=== PATIENT | female | born 1970 | race Caucasian/White ===

== ENCOUNTER → 2024-08-08 11:37 | Outpatient (REF) | payer SELFPAY | LOC: WDC 11:37 | PROVIDERS: ATTENDING PHYSICIAN Family Medicine | DX: Z12.31 Encounter for screening mammogram for malignant neoplasm of breast (principal) | CPT/HCPCS: 77063; 77067 ==

== ENCOUNTER → 2024-08-15 10:06 | Outpatient (REF) | payer SELFPAY | LOC: WDC 10:06 | PROVIDERS: ATTENDING PHYSICIAN Family Medicine | DX: R92.8 Other abnormal and inconclusive findings on diagnostic imaging of breast (principal) | CPT/HCPCS: 76642 ==

== ENCOUNTER → 2024-08-29 11:12 | Outpatient (REF) | payer SELFPAY ==
--- NOTE | 2024-08-29 14:39 | OID.BR.INTR ---
[facility] Breast Navigator - Initial
- -
Date of Contact: 08/29/24
Met with patient. Patient given written information on navigator services available at [facility]. Will follow up as needed per protocol.
== END ==
LOC: WDC 11:12
PROVIDERS: ATTENDING PHYSICIAN Family Medicine
DX: N63.13 Unspecified lump in the right breast, lower outer quadrant (principal)
CPT/HCPCS: 88305; 19083; 88341; 88342; 88360; A4648

== ENCOUNTER → 2024-09-18 16:21 | Outpatient (REF) | payer MEDICAID, SELFPAY | LOC: MRI 3T 16:21 | PROVIDERS: ATTENDING PHYSICIAN Surgery; FAMILY PHYSICIAN Family Medicine | DX: C50.411 Malignant neoplasm of upper-outer quadrant of right female breast (principal); Z17.0 Estrogen receptor positive status [ER+] | CPT/HCPCS: 77049; A9585 ==

== ENCOUNTER → 2024-11-14 08:28 | Outpatient (REF) | payer OTHER, SELFPAY | LOC: WDC 08:28 | PROVIDERS: ATTENDING PHYSICIAN Surgery | DX: C50.411 Malignant neoplasm of upper-outer quadrant of right female breast (principal) | CPT/HCPCS: 38792; 76942; A9541 ==

== ENCOUNTER 2024-11-15 06:09 | Day surgery (SDC) | payer OTHER, MEDICAID, SELFPAY ==
[2024-11-15] VITALS (14 sets, daily range): BP systolic 0–132; BP diastolic 68–88; BMI 25.2
[2024-11-15] MEDS: NORMOSOL-R/PLASMALYTE-A 1000 IV (06:34)
[2024-11-15] MEDS: DILAUDID 0.5 MG IV (16:13)
--- NOTE | 2024-11-15 16:25 | PTCARENOTE ---
Pt received from the PACU via bed. Pt is AAOx3, VSS, Pt is afebrile. Pt with Surgical bra in place. Dressings to b/l breast intact w/o drainage at this time. Pt with 2 Narinder drains on left breast area, and 2 Narinder drains right breast area. All drains
intact, right drain 'A' with serosanquinous fluid noted. Pt instructed on plan of care. Pt verbalized understanding of instructions, call russ is within reach.
--- NOTE | 2024-11-15 16:29 | W.IMMPOSTOP ---
Surgical Immed Post Op Note
-
Primary Surgeon: DEANN Anguiano MD
Assisting Surgeon:
Pre-op Diagnosis: Breast cancer
Post-op Diagnosis: Same
Procedure Performed: Bilateral immediate reconstruction with tissue expanders after bilateral mastectomy, insertion of ADM, spy angiography
Anesthesia Type: General
Specimen / Cultures: Per Dr. Gomez
Estimated Blood Loss: 30 cc
Complications: None
Operative Findings: As expected, expanders to 300 cc
--- NOTE | 2024-11-15 16:31 | OR.RPT ---
Operative Report
Operative Report
Date of surgery: 11/15/2024
Surgeon: DEANN Anguiano MD
Preoperative diagnosis: Breast cancer
Postoperative diagnosis: Same
Procedure:
1. Bilateral immediate breast reconstruction with prepectoral tissue expanders
2. Total anterior coverage technique for ADM wrap
3. Spy angiography
Complications: None
Anesthesia: General
EBL: 30
Furniture Sales Associate size: 14 cm, filled to 300 cc
Indications for procedure: Patient was referred to me by Dr. Gomez with a recent diagnosis of breast cancer. She was planned to undergo bilateral mastectomy. We discussed her options for breast reconstruction at length including implant based
and autologous options. The patient opted for immediate reconstruction with tissue expanders. She understands that the final reconstruction will be staged. We also discussed the use of ADM and spy angiography. Risks include reconstructive
failure, capsular contracture, infection, delayed wound healing, mastectomy skin flap necrosis, hematoma, seroma and need for repeat procedure. Patient understood these risks and desired to proceed. Consents were signed accordingly.
Procedure in detail: Patient was identified the preoperative area and the surgical site was confirmed to be the bilateral breast. All questions were answered and consents were confirmed. Patient was then sat upright and normal anatomical landmarks
were marked including midline and inframammary fold. Patient was then taken back to the operating room placed supine on the table. She was prepped and draped in the usual sterile fashion using ChloraPrep solution. A Bhakta catheter was placed. A
timeout for patient safety was performed was confirmed that bilateral SCDs were in place and preoperative antibiotics administered. The procedure began with Dr. Gomez first performing the mastectomy. Her op report will be dictated separately.
When I entered the procedure, the first sided mastectomy had been completed. As such I inspected the wound bed of the chest wall and ensured meticulous hemostasis. The base width was measured and appropriate tissue material handling warehouse supervisor was selected. Two 6 x
16 sheets of Cortiva ADM were soaked in dilute Betadine solution and passed through the skin graft mesher on carrier of 1-1.5. This construct was then draped around the tissue material handling warehouse supervisor in a total anterior coverage technique. The material handling warehouse supervisor ADM
construct was then sutured to the chest wall with a series of 2-0 silk sutures. Pectoralis and intercostal blocks were performed with Marcaine. 2 drains were then placed in the preaxial area line with a long subcutaneous tunnel and sutured in
place with 2-0 Prolene sutures. The wound was irrigated with double antibiotic solution and dilute Betadine. The mastectomy incisions were then closed with a series of 3-0 Vicryl's in the deep subcutaneous tissues followed by 3-0 and 4-0
Monocryl's in the deep dermis and superficial skin.
Attention was then placed on the contralateral side after completion of the mastectomy. The exact same procedure was performed. An material handling warehouse supervisor of the same size was opened and 2 sheets of ADM were soaked in Betadine, meshed, and draped around the
anterior surface of the material handling warehouse supervisor in a total anterior coverage technique. The construct was then sutured to the chest wall using 2-0 silks. Pectoralis and intercostal blocks were performed. Meticulous hemostasis was ensured and the wound was
irrigated with combination of double antibiotic solution consisting of Ancef and gentamicin as well as dilute Betadine. The wound was closed in layers with 3-0 Vicryl followed by 3-0 Monocryl and 4-0 Monocryl superficial skin.
Spy angiography was performed after closure to ensure adequate vascularity of the bilateral mastectomy flaps. This was confirmed. The wounds were dressed accordingly and a supportive bra was placed. The patient was extubated taken to the PACU for
further care. All counts were correct at the end the case was performed out complication.
[2024-11-15] MEDS: NEURONTIN 100 MG PO ×2 (17:43→21:39)
[2024-11-15] MEDS: TYLENOL 1000 MG PO ×2 (17:45→23:01)
--- NOTE | 2024-11-15 18:44 | OR.RPT ---
Addendum entered and electronically signed by Mary Gomez MD 11/29/24 14:21:
Pre-Op DX: Right breast carcinoma S/P neoadjuvant chemotherapy
Post-Op DX: Right breast carcinoma S/P neoadjuvant chemotherapy
Procedure: Bilateral mastectomies, right sentinel node mapping and biopsy
Anes: General
EBL: 50cc
Complications: None
Original Note:
Operative Report
Operative Report
The patient is a 48-year-old female diagnosed with right sided HER2 positive breast carcinoma who qualified for neoadjuvant chemotherapy treatment. She completed her therapy and presents for definitive surgery. On the day prior to her procedure
she presented to the breast center and underwent technetium radiotracer injection into her right breast parenchyma. On the day of surgery she verified site and procedures. She was taken to the operating room and in the supine position intravenous
general anesthesia was induced. A tran catheter was inserted using aseptic technique and antibiotic and DVT prophylaxis had been provided. Plastic surgery who is performing an implant based reconstruction marked the incisions which incorporated
resection of the nipples bilaterally. The dissection was begun on the left side where a skin incision was made with the blade and skin flaps were elevated using a lighted retractor and the PlasmaBlade. Any larger vessels were controlled with 3-0
silk tie and the breast was taken off the chest wall in a superior to inferior dimension. Time out of body was noted the specimen was oriented for the pathologist and sent for immediate processing. Hemostasis was verified and a moist pack was
placed in the resection cavity. Plastic surgery entered to begin the reconstructive portion of the procedure. I then transferred to the right side and in the same manner the incision was made and skin flaps were elevated on the right side. This
breast was taken off, oriented and sent for pathology. This allowed access into the axilla and prior to incising the skin on the right I injected methylene blue into the breast parenchyma and external massage was applied. Clavipectoral fascia was
incised using the cautery this allowed access into the axilla. Using the gamma probe and visualization 3 sentinel node packets were identified and removed. Feeding vessels were controlled with 3-0 silk tie. Frozen section analysis on the nodes was
negative and actually revealed the presence of 5 sentinel nodes. Plastic surgery then continued to complete the reconstructive portion of the procedure. All sponge needle and instrument counts were correct at this juncture,
[place] Node Bx Breast Cancer
[place] Node Bx Breast Cancer
Operation performed with curative intent: Yes
Tracer(s) to ID [place] Nodes in Non-Neoadjuvant setting: N/A
Tracer(s) to ID Sentinal Nodes in the Neoadjuvant Setting: Dye and Radioactive Tracer
All nodes at end of dye-filled Lymphatic Channel removed: Yes
All Significantly Radioactive Nodes were removed: Yes
All Palpably Suspicious Nodes were Removed: Yes
Bx Proven Pos Nodes Marked Prior to Chemo ID'd & Removed: Yes
[2024-11-15] MEDS: ANCEF 5 IV (20:15)
[2024-11-15] MEDS: COLACE 100 MG PO (20:15)
[2024-11-15] MEDS: VALIUM 5 MG PO (23:04)
[2024-11-15] MEDS: TUMS CHEWABLE TABLET 200 MG PO (23:31)
[2024-11-16] MEDS: ANCEF 5 IV ×2 (03:03→12:29)
[2024-11-16 03:07] VITALS: BP 133/84
[2024-11-16] MEDS: ULTRAM 100 MG PO ×2 (03:13→09:40)
[2024-11-16] MEDS: TYLENOL 1000 MG PO ×2 (05:55→12:29)
[2024-11-16 06:56] LABS: Hematocrit 34.8 % (37.0-47.0); Hemoglobin 11.9 g/dL (12.0-16.0)
[2024-11-16 07:15] VITALS: BP 125/83
[2024-11-16 07:19] LABS: Blood Urea Nitrogen 11 mg/dl (7-17); Calcium 9.4 mg/dl (8.4-10.2); Carbon Dioxide 27 mmol/L (22-30); Chloride 105 mmol/L (98-107); Estimated Creatinine Clearance 75 ml/min; Glucose 91 mg/dl (70-99); Potassium 4.3 mmol/L (3.5-5.1); Sodium 137 mmol/L (135-145); eGFR > 60.00
[2024-11-16] MEDS: COLACE 100 MG PO (09:30)
[2024-11-16] MEDS: ARMOUR THYROID 120 MG PO (09:30)
[2024-11-16] MEDS: NEURONTIN 100 MG PO ×2 (09:30→16:54)
[2024-11-16 11:08] VITALS: BP 121/85
--- NOTE | 2024-11-16 11:35 | VNURNOTE ---
Home Health Liaison met with patient and family member to discuss [facility] nurse/therapy, visits, schedule and homebound status. Patient is agreeable and understands that visits at home will be 2-3 x per week to assess and teach medical and drain
management. [facility] brochure provided with contact information. Patient is aware that [facility] will contact them for start of care in 1-2 days after discharge from .
[facility] referral completed in [facility].
--- NOTE | 2024-11-16 11:49 | CM ---
Met with pt and her son at bedside
Pt reports she lives with her and adult son in a 3 story home; no steps to enter, 30 steps to 2nd fl
Independent, employed FT, drives
DME - none
SNF/HH - no past hx
Has ride at discharge
PCP - Lanie Allan in [place]
Pharm - [facility]
CM consult for VN/drain care
Discussed with pt - agreeable to home care - has no preference
TT sent to [facility] Liaison for home care needs
Plan - anticipate home with [facility] when medically stable
--- NOTE | 2024-11-16 13:13 | W.DCSUMMARY ---
Discharge Summary
Discharge Data
Date of Admission: 11/15/24
Date of Discharge: 11/16/24
-
Pending Results: No
Discharge Plan
-
Patient Disposition: Home (Routine Discharge)
Discharge Diagnosis/Procedures: s/p bilateral mastectomies and immediate reconstruction
Condition: Good
Diet: No restrictions
Activity: No strenuous activity
Additional Activity: No heavy lifting >10lbs
Driving Restrictions: Not until seen by your Dr
Bathing Restrictions: OK to Shower
Other Services: VN
Wound Care: Remove dressings if wet, strip and record drain output twice daily
Referrals:
UNKNOWN - PT NOT,INTERVIEWE [Family Provider] -
Prescriptions:
New
tramadol 50 mg Tablet
50 - 100 mg PO Q6HPRN PRN (Reason: SEVERE PAIN) 7 Days Qty: 20 0RF
acetaminophen [Tylenol Extra Strength] 500 mg Tablet
1,000 mg PO Q6 Qty: 30 0RF
docusate sodium 100 mg Capsule
100 mg PO BID 14 Days Qty: 28 0RF
gabapentin 100 mg Capsule
100 mg PO TID 90 Days Qty: 270 0RF
diazepam 5 mg Tablet
5 mg PO TIDPRN PRN (Reason: Muscle Spasms) 14 Days Qty: 42 0RF
cefadroxil 500 mg capsule
500 mg PO BID Qty: 42 0RF
Continued
ascorbic acid (vitamin C) [Vitamin C] 1,000 mg Tablet
3,000 mg PO DAILY
thyroid (pork) [Lima Thyroid] 120 mg Tablet
120 mg PO DAILY
Liposomal Curcumin
2 tsp PO DAILY
omega 2-icl-wwu-fish oil [Fish Oil] 1,000 (120-180) mg Capsule
1 cap PO DAILY
Rx Instructions:
OMEGA PURE FISH OIL
vitamin D3-vitamin K2 125 mcg (5,000 unit)-100 mcg Capsule
1 cap PO Q48H
Cbd Gummy
1 gummy PO HS
Discharge Orders:
Discharge Patient (As Directed); Ordered 11/16/24
Ordered By: Pradeep Anguiano
Discharge Date and Time
Print Language: TAJIK
--- NOTE | 2024-11-16 13:13 | W.PN.PLAS ---
Progress Note
Objective Data
Vital Signs
Temp Pulse Resp BP Pulse Ox
98 F 89 20 121/85 95
11/16/24 11:08 11/16/24 11:08 11/16/24 11:08 11/16/24 11:08 11/16/24 11:08
Intake and Output
11/15/24 11/16/24 11/17/24
06:59 06:59 06:59
Intake Total 1650 / 1650
Output Total 875 / 875 155 / 155
Balance 775 / 775 -155 / -155
Intake:
Oral fluids 1200 / 1200
IV fluids (Total) 450 / 450
normosol 100 / 100
Output:
Drain Output (Total) 475 / 475 155 / 155
Left Breast 110 / 110
Left Breast B 0 / 0
Left C 55 / 55 20 / 20
Left D 85 / 85 30 / 30
Right Breast A 105 / 105 65 / 65
Right Breast B 120 / 120 40 / 40
Urine, Bhakta 400 / 400
Other:
Number of approximated SMALL 1
amounts of urine
Number of approximated MODERATE 3
amounts of urine
Lab Results
11/16/24 06:04
11/16/24 06:04
Assessment / Plan
Wound stable. Patient continues to improve. Doing well. Patient anxious to go.
Patient is stable. Will discharge to home once patient is able to ambulate, void, tolerate a PO diet and pain is adequately controlled.
Visiting Nurse care ordered / not ordered.
Wound care discussed with patient.
Follow up within days.
Follow up with family physician for any medical issues.
Patient given any appropriate scripts at office pre op visit.
[2024-11-16 15:45] VITALS: BP 125/86
== END 2024-11-16 18:10 | disposition home or self-care (01) ==
LOC: SDS 06:09
PROVIDERS: Surgery Plastic and Reconstructive Surgery; ATTENDING PHYSICIAN Surgery
DX: C50.911 Malignant neoplasm of unspecified site of right female breast (principal); C50.912 Malignant neoplasm of unspecified site of left female breast; Z17.0 Estrogen receptor positive status [ER+]; N60.92 Unspecified benign mammary dysplasia of left breast
CPT/HCPCS: 19357; 19301; 38525; 15777; 88307; 88309; 88332; 80048; 85014; 85018; 88331; 88341; 88342; C1789; L8000; Q4100

== ENCOUNTER 2024-12-23 12:05 | Emergency (ER) | payer OTHER, MEDICAID, SELFPAY ==
[2024-12-23 12:12] VITALS: BP 140/100
[2024-12-23 12:31] LABS: % Basophils 0.7 % (0-2); % Eosinophils 4.7 % (0-6); % Immature Granulocytes 0.3 % (0-0.5); % Lymphocytes 27.1 % (20.5-51.1); % Monocytes 6.3 % (1.7-9.3); % Neutrophils 60.9 % (42.2-75.2); Absolute Eosinophils 0.3 10^3/uL (0-0.7); Absolute Lymphocytes 1.6 10^3/uL (1.2-3.4); Absolute Monocytes 0.4 10^3/uL (0.1-0.6); Absolute Neutrophils 3.5 10^3/uL (1.4-6.5); Hematocrit 40.7 % (37.0-47.0); Hemoglobin 13.6 g/dL (12.0-16.0); Mean Corp Hgb Conc. 33.4 g/dL (33.0-37.0); Mean Corpuscular Hgb 30.1 pg (27.0-31.0); Mean Platelet Volume 9.1 fL (7.4-10.4); Nucleated Red Blood Cells % 0 %; Platelet Count 268 10^3/uL (130-400); Red Blood Cell Count 4.52 10^6/uL (4.20-5.40); Red Cell Dist. Width 13.1 % (11.5-14.5); White Blood Cell Count 5.8 10^3/uL (4.8-10.8)
[2024-12-23 12:48] LABS: D-Dimer 1.51 ug/mlFEU (0.00-0.50)
[2024-12-23 12:51] LABS: ALT (SGPT) 24 U/L (0-35); AST (SGOT) 24 U/L (14-36); Albumin 4.5 g/dl (3.5-5.0); Alkaline Phosphatase 67 U/L (38-126); Blood Urea Nitrogen 16 mg/dl (7-17); Calcium 10.1 mg/dl (8.4-10.2); Carbon Dioxide 25 mmol/L (22-30); Chloride 104 mmol/L (98-107); Glucose 118 mg/dl (70-99); Potassium 4.1 mmol/L (3.5-5.1); Sodium 139 mmol/L (135-145); Total Bilirubin 0.4 mg/dl (0.2-1.3); Total Protein 7.2 g/dl (6.3-8.2); eGFR > 60.00
[2024-12-23 13:01] LABS: Troponin I < 0.012 ng/ml
--- NOTE | 2024-12-23 14:11 | ED.GENMED ---
History of Present Illness
<Marva León PA-C - Last Filed: 12/23/24 22:12>
General
Chief Complaint: Chest Pain
Source: patient
Exam Limitations: none
Time Seen by Provider: 12/23/24 13:31
Nursing documentation reviewed up to this point in time: agreed with
History of Present Illness
History of Present Illness:
54-year-old female with a past medical history of breast cancer 5 weeks status post bilateral mastectomy presents emergency department today with concerns of left chest pain. She states that she was doing well in her recovery and has breast binders
in place to eventually get a reconstruction. Patient reports that her pain has been well-controlled and has been steadily improving until last night she suddenly got an onset of left-sided chest pain. She notes that it is worse when she takes a
deep breath. She denies any shortness of breath. She also notes intermittent fevers and chills. She notes that the pain is centered around her incision site and the pain worsens with left arm movement or when she moves around the breast. She
denies dizziness or lightheadedness. She denies syncopal episodes. She denies pain or redness in her lower extremities. She denies any cough or flulike symptoms.
Past History
<Marva León PA-C - Last Filed: 12/23/24 22:12>
Past History
ED Past Medical History: Other (G3, P2)
ED Past Surgical History: None
Social History
Tobacco: Non-smoker
Alcohol: Occasional
Personal:
Living: with family
Employment: Employed
Family History
Family History: Other (Reviewed and non-contributory)
Review of Systems
<Marva León PA-C - Last Filed: 12/23/24 22:12>
Review of Systems
All Other Systems: ROS reviewed and negative except as documented in HPI and ROS
Phy Exam
<Marva León PA-C - Last Filed: 12/23/24 22:12>
Physical Exam
Physical Exam:
General: Patient is well appearing and in no acute distress; non-toxic
Skin: Warm and dry, mild erythema noted to left breast incision site with tenderness, areas of necrotic tissue noted
Head: Normocephalic, atraumatic
Eyes: Sclera non-icteric. EOMs intact.
Cardiac: Tachycaria otherwise regular rhythm, no murmurs.
Breast: See skin exam above. No palpable masses, no palpable lymphadenopathy bilaterally
Pulm: Normal respiratory effort, no wheezes, rales, or rhonchi
Neuro: CN II-XII intact, no focal neurologic deficits.
Psychiatric: Appropriate mood and affect.
Scores
<Marva León PA-C - Last Filed: 12/23/24 22:12>
Heart Score for Chest Pain Patients
STEMI patient?: No
History: Slightly or Non-Suspicious
ECG: Normal
Age: >45 - <65 years
Risk Factors: 1 or 2 Risk Factors
Troponin: </= Normal Limit
Heart Score for Chest Pain Patients: 2
Heart Score Risk: 2.5% MACE over next 6 weeks
<Cornelius Mcmahon DO - Last Filed: 12/23/24 22:15>
Heart Score for Chest Pain Patients
Heart Score for Chest Pain Patients: 2
Heart Score Risk: 2.5% MACE over next 6 weeks
Course
<Marva León PA-C - Last Filed: 12/23/24 22:12>
Orders/Labs/Results
Orders:
Orders
12/23/24 12:08
EKG [Electrocardiogram (*1)] Urgent
Reason for Study: Chest Pain
EKG- Treatment ONCE
12/23/24 12:18
CXR2 [CR Chest - 2 Views ] Urgent
Comment: s/p five wks b/l mastectomy
Reason For Exam: sob with left sided ches pain
12/23/24 12:23
Complete Blood Count/With Diff Urgent
Comprehensive Metabolic Panel Urgent
D-Dimer Urgent
Troponin I Urgent
12/23/24 13:54
CT Chest PE Study Urgent
Comment:
Reason For Exam: left sided pleuritic chest pain
12/23/24 14:06
US Breast Left Ltd Urgent
Comment:
Reason For Exam: left breast pain (abscess rule out)
12/23/24 17:19
Morphine Sulfate 4 mg IV NOW STA
Abnormal Lab Results
12/23/24
12:23
D-Dimer 1.51 H ug/mlFEU
(0.00-0.50)
Glucose 118 H mg/dl
(70-99)
12/23/24 12:23
12/23/24 12:23
Vital Signs
Initial and Last Documented VS:
Initial Vital Signs
Temp Pulse Resp BP Pulse Ox
98.2 F 120 16 140/100 98
12/23/24 12:12 12/23/24 12:12 12/23/24 12:12 12/23/24 12:12 12/23/24 12:12
Last Documented Vital Signs
Temp Pulse Resp BP Pulse Ox
98.5 F 103 21 141/84 97
12/23/24 18:30 12/23/24 18:30 12/23/24 18:30 12/23/24 18:30 12/23/24 18:30
Allisonlt;Cornelius Mcmahon, DO - Last Filed: 12/23/24 22:15>
Orders/Labs/Results
Orders:
Orders
12/23/24 12:08
EKG [Electrocardiogram (*1)] Urgent
Reason for Study: Chest Pain
EKG- Treatment ONCE
12/23/24 12:18
CXR2 [CR Chest - 2 Views ] Urgent
Comment: s/p five wks b/l mastectomy
Reason For Exam: sob with left sided ches pain
12/23/24 12:23
Complete Blood Count/With Diff Urgent
Comprehensive Metabolic Panel Urgent
D-Dimer Urgent
Troponin I Urgent
12/23/24 13:54
CT Chest PE Study Urgent
Comment:
Reason For Exam: left sided pleuritic chest pain
12/23/24 14:06
US Breast Left Ltd Urgent
Comment:
Reason For Exam: left breast pain (abscess rule out)
12/23/24 17:19
Morphine Sulfate 4 mg IV NOW STA
Abnormal Lab Results
12/23/24
12:23
D-Dimer 1.51 H ug/mlFEU
(0.00-0.50)
Glucose 118 H mg/dl
(70-99)
12/23/24 12:23
12/23/24 12:23
Vital Signs
Initial and Last Documented VS:
Initial Vital Signs
Temp Pulse Resp BP Pulse Ox
98.2 F 120 16 140/100 98
12/23/24 12:12 12/23/24 12:12 12/23/24 12:12 12/23/24 12:12 12/23/24 12:12
Last Documented Vital Signs
Temp Pulse Resp BP Pulse Ox
98.5 F 103 21 141/84 97
12/23/24 18:30 12/23/24 18:30 12/23/24 18:30 12/23/24 18:30 12/23/24 18:30
Allisonlt;Marva eLón PA-C - Last Filed: 12/23/24 22:12>
MDM/Problems Addressed
Differential Diagnosis Includes:
cellulitis, abscess, ACS, pneumothorax, PE, breast binder pain
MDM/Problems Addressed:
54-year-old female presents emergency department today with left-sided chest pain since last night. She does have a history of breast cancer and she is 5-week status post bilateral mastectomy. She has had intermittent fevers and chills. On exam,
she has redness and swelling over the left breast. Patient was sent for ultrasound to rule out any abscess. Ultrasound negative for abscess. Patient was noted to be tachycardic had D-dimer performed which was elevated patient sent for CTA which
was negative for any PE. Suspect her pain is related to where the neon glass blower sutured to the chest wall. Per recommendations of Dr. Anguiano, patient was restarted on tramadol for her pain. Patient was given a dose of morphine here in the emergency
department. Patient stable for discharge. Patient has a follow-up appointment with her surgeon in the next few days
Chronic conditions affecting care:
breast cancer
<Marva León PA-C - Last Filed: 12/23/24 22:12>
*Pulse Oximetry
Patient hypoxic: no
*EKG
Interpreted by ED Provider?: Yes
EKG Intrepretation Date: 12/23/24
Interpretation: normal
Comparison EKG: no changes
Heart Rate: 92
Rate: normal
Rhythm: sinus
[place]: normal axis
Interval: normal interval
QRS Pattern: normal QRS
*Critical Care Note
Total Time (30-74mins, 75-104mins- exclusive of procedures): Not Applicable
Data Reviewed
Review of Other/Old Records Reveals: Records (Reviewed discharge summary from 11/16/2024, patient had bilateral vasectomy and had tissue expanders in place for planned reconstruction)
Source: patient and records
ED Attending Note
<Marva León PA-C - Last Filed: 12/23/24 22:12>
-
Portions of this chart may have been created with voice recognition software.� Occasional wrong word or��sound alike� substitutions may have occurred due to the inherent limitations of voice recognition software.
<Cornelius Mcmahon, DO - Last Filed: 12/23/24 22:15>
ED Attending Note
Patient seen and examined by attending physician: Yes
I performed a history and physical exam of patient and discussed management with resident, I reviewed resident's note and agree with documented findings and plan of care.: Yes
ED Attending Note:
I have reviewed and agree with history and treatment plan by Marva León PA-C. My exam revealed 54-year-old female in no acute distress, clear lungs. Breasts with postoperative ecchymosis, symmetrical swelling from expanders. Do not suspect
abscess, do not suspect PE. Stable for discharge.
Discharge Plan
Departure
Patient Disposition: Home (Routine Discharge)
Date of Disposition: 12/23/24
Time of Disposition: 18:20
Patient with high blood pressure during this ER visit?: Yes
Condition: Good
Discharge Problem:
Acute breast pain, Chest wall pain
Instructions: BLOOD PRESSURE
Prescriptions:
New
tramadol 50 mg tablet
50 mg PO Q6H Qty: 12 0RF
No Action
ascorbic acid (vitamin C) [Vitamin C] 1,000 mg Tablet
3,000 mg PO DAILY
thyroid (pork) [Pamplico Thyroid] 120 mg Tablet
120 mg PO DAILY
Liposomal Curcumin
2 tsp PO DAILY
omega 1-gvd-wne-fish oil [Fish Oil] 1,000 (120-180) mg Capsule
1 cap PO DAILY
Rx Instructions:
OMEGA PURE FISH OIL
vitamin D3-vitamin K2 125 mcg (5,000 unit)-100 mcg Capsule
1 cap PO Q48H
Cbd Gummy
1 gummy PO HS
tramadol 50 mg Tablet
50 - 100 mg PO Q6HPRN PRN (Reason: SEVERE PAIN) 7 Days Qty: 20 0RF
acetaminophen [Tylenol Extra Strength] 500 mg Tablet
1,000 mg PO Q6 Qty: 30 0RF
docusate sodium 100 mg Capsule
100 mg PO BID 14 Days Qty: 28 0RF
gabapentin 100 mg Capsule
100 mg PO TID 90 Days Qty: 270 0RF
diazepam 5 mg Tablet
5 mg PO TIDPRN PRN (Reason: Muscle Spasms) 14 Days Qty: 42 0RF
cefadroxil 500 mg capsule
500 mg PO BID Qty: 42 0RF
Referrals:
Mary Gomez MD [Active] - Call in 1-3 days for appt
Lanie Allan I, DO [Family Provider] -
Pradeep Anguiano MD [Active] -
Activity Restrictions/Additional Instructions:
Please call Dr. Anguiano's office first thing Wednesday.
Tramadol has been sent to your pharmacy. You can take 1 tablet every 6 hours as needed for
PLEASE RETURN EMERGENCY DEPARTMENT SHOULD YOU DEVELOP FEVERS OR CHILLS, PURULENT DRAINAGE FROM THE LEFT BREAST INCISION, LIGHTHEADEDNESS, PERSISTENT HEADACHES, SYNCOPE, INTRACTABLE NAUSEA OR VOMITING, OR ANY OTHER SIGNS OR SYMPTOMS CONCERNING TO YOU.
Interventions
Interventions:
*Risk Screen - Suicide Last Done: 12/23/24 12:12
*General Assessment Last Done: 12/23/24 13:34
*Neglect/Abuse Screening Last Done: 12/23/24 12:12
ED- Fall Risk Assessment Last Done: 12/23/24 14:18
*ED COVID-19 Vaccine History Last Done: 12/23/24 14:27
*Nursing Disposition Last Done: 12/23/24 18:37
ED- Cardiac Assessment Last Done: 12/23/24 14:18
Discharge Date and Time
Discharge Date/Time: 12/23/24 18:38
Print Language: SAMI
[2024-12-23 14:27] VITALS: BMI 25.8
[2024-12-23 16:12] VITALS: BP 132/80
[2024-12-23 16:13] VITALS: BP 132/80
[2024-12-23 17:00] VITALS: BP 115/96
[2024-12-23] MEDS: MORPHINE SULFATE 4 MG IV (17:25)
[2024-12-23 18:00] VITALS: BP 141/84
[2024-12-23 18:30] VITALS: BP 141/84
== END 2024-12-23 18:38 | disposition home or self-care (01) ==
LOC: EMR 12:05
PROVIDERS: Student in an Organized Health Care Education/Training Program; EMERGENCY PHYSICIAN Emergency Medicine; FAMILY PHYSICIAN Family Medicine
DX: N64.4 Mastodynia (principal); R07.89 Other chest pain; R79.1 Abnormal coagulation profile; C50.919 Malignant neoplasm of unspecified site of unspecified female breast; Z90.13 Acquired absence of bilateral breasts and nipples
CPT/HCPCS: 99285; 96374; 71046; 71275; 76642; 80053; 84484; 85025; 85379; 93005; Q9967

== ENCOUNTER → 2025-02-02 13:32 | Outpatient (REF) | payer OTHER, SELFPAY | LOC: RAD 13:32 | PROVIDERS: ATTENDING PHYSICIAN Internal Medicine Hematology & Oncology; FAMILY PHYSICIAN Family Medicine | DX: C50.411 Malignant neoplasm of upper-outer quadrant of right female breast (principal) | CPT/HCPCS: 77080 ==

== ENCOUNTER 2025-02-21 06:31 | Day surgery (SDC) | payer OTHER, SELFPAY ==
[2025-02-21] VITALS (12 sets, daily range): BP systolic 101–131; BP diastolic 62–85; BMI 24.2
[2025-02-21] MEDS: NORMOSOL-R/PLASMALYTE-A 1000 IV (10:05)
[2025-02-21] MEDS: DILAUDID 0.25 MG IV ×2 (15:44→15:58)
--- NOTE | 2025-02-21 16:26 | W.IMMPOSTOP ---
Surgical Immed Post Op Note
-
Primary Surgeon: DEANN Anguiano MD
Assisting Surgeon:
Pre-op Diagnosis: Breast cancer, status post bilateral mastectomy
Post-op Diagnosis: Same
Procedure Performed: Bilateral removal of expanders and replacement with silicone gel implants, fat grafting bilateral breast
Anesthesia Type: General
Specimen / Cultures: None
Estimated Blood Loss: 30 cc
Complications: None
Operative Findings: As expected
--- NOTE | 2025-02-21 16:26 | OR.RPT ---
Operative Report
Operative Report
Date of surgery: 02/21/2025
Surgeon: DEANN Anguiano MD
Preoperative diagnosis: History of breast cancer, history of bilateral mastectomy and immediate reconstruction with expanders
Postoperative diagnosis: Same
Procedure:
1. Removal of bilateral tissue expanders with extensive capsulotomies
2. Bilateral insertion of silicone gel breast implants
3. Fat grafting to the bilateral breast with donor site anterior abdomen and bilateral flanks
Anesthesia: General
Complications: None
EBL: 30 cc
Indication for procedure: Patient is a 55-year-old female with a recent history of breast cancer. She underwent bilateral nipple sparing mastectomies and immediate reconstruction with tissue expanders. She followed a routine postop course save for
some delayed wound healing required excision and reclosure in the office. She healed sufficiently and was ready for to remove the expanders and replaced them with permanent silicone gel breast implants. Risk of implants were reviewed at length
including ALCL, CURT, rupture, capsular contracture, infection, need for repeat procedure hematoma and seroma. Fat grafting was discussed as a way to blend the implant to the surrounding tissues and create hybrid reconstruction. This included
liposuction to harvest the fat to the anterior abdomen and bilateral flanks. She understood these risk desire to proceed.
Procedure in detail: Patient was identified preoperatively and the surgical site was confirmed to be the bilateral breast anterior abdomen and bilateral flanks. All questions were answered and consents were confirmed. Patient was marked
appropriately and and she was taken back to the operating room placed supine on the table. Anesthesia was induced and patient was prepped and draped in the usual sterile fashion using ChloraPrep solution. A timeout for patient safety was performed
was confirmed that preoperative antibiotics have been administered and bilateral SCDs were in place. Procedure began first with the injection 1% lidocaine with epinephrine in the bilateral proposed inframammary incisions. Attention was then drawn
to the areas of relative lipodystrophy in the anterior abdomen and bilateral flanks and tumescent solution consisting of 1 L normal saline with dilute lidocaine and epinephrine was infiltrated into these areas. A 15 blade was then used to incise
the right inframammary fold and dissection continued with Bovie electrocautery until the research attorney was exposed. The research attorney was removed and the capsule was investigated. Any unincorporated ADM was removed and capsulotomies were performed in the
medial and superior aspects. After ensuring meticulous hemostasis the pocket was thoroughly irrigated and a gel sizer was placed. It was determined that the gel sizer was appropriate but a little more size would provide with anterior projection
and a better outcome. As such a 620 cc implant was selected. Prior to insertion I performed the exact procedure on the left side. Incision was made in the inframammary fold and dissection continued to the research attorney. Capsulotomies were made and
the research attorney was removed. Meticulous hemostasis was ensured and the wound bed was irrigated with dilute antibiotic and Betadine solutions. Using a no touch technique, after donning new gloves, a Bass funnel was used to insert the 620 cc implant
on the left side. A multilayer closure was performed with 2-0 Vicryl followed by 3-0 and 4-0 Monocryl. Attention was then drawn to the right side where the sizer was removed and replaced after irrigating the pocket with double antibiotic solution
and dilute Betadine. Again using no touch technique and a Bass funnel a 620 cc implant was placed on the right side. This was also closed in layers using 2-0 Vicryl followed by 3-0 and 4-0 Monocryl. Attention was then drawn to the areas that
were infiltrated and SAF E lipo aspiration was performed. Total of 600 cc Lipo aspirate was removed and processed with the Pure Graft System. This allowed for 200 cc of fat to be injected in the bilateral breast. 100 cc was placed in each breast.
All portals were closed with 5-0 fast. Patient tolerated procedure well was performed out complication, all counts were correct at the end the case. She was extubated taken the PACU for further care.
== END 2025-02-21 17:49 | disposition home or self-care (01) ==
LOC: SDS 06:31
PROVIDERS: ATTENDING PHYSICIAN Surgery Plastic and Reconstructive Surgery
DX: Z85.3 Personal history of malignant neoplasm of breast (principal)
CPT/HCPCS: 11970; 15771; C1789

== ENCOUNTER → 2025-03-29 12:28 | Outpatient (REF) | payer OTHER, SELFPAY | LOC: HWRAD 12:28 | PROVIDERS: ATTENDING PHYSICIAN Surgery Plastic and Reconstructive Surgery; FAMILY PHYSICIAN Family Medicine | DX: E03.9 Hypothyroidism, unspecified (principal); E07.9 Disorder of thyroid, unspecified | CPT/HCPCS: 76536 ==

== ENCOUNTER 2025-04-06 06:21 | Day surgery (SDC) | payer OTHER, SELFPAY | END 2025-04-06 14:51 | disposition home or self-care (01) | LOC: GI 06:21 | PROVIDERS: ATTENDING PHYSICIAN Internal Medicine Gastroenterology | DX: Z12.11 Encounter for screening for malignant neoplasm of colon (principal); D12.0 Benign neoplasm of cecum; K57.30 Diverticulosis of large intestine without perforation or abscess without bleeding; K64.8 Other hemorrhoids | CPT/HCPCS: 45385; 45380; 88305 ==

== ENCOUNTER → 2025-07-18 10:13 | Outpatient (REF) | payer OTHER, SELFPAY | LOC: RCS 10:13 | PROVIDERS: ATTENDING PHYSICIAN Surgery Plastic and Reconstructive Surgery; FAMILY PHYSICIAN Family Medicine | DX: Z01.818 Encounter for other preprocedural examination (principal) | CPT/HCPCS: 93005 ==

== ENCOUNTER 2025-07-25 06:07 | Day surgery (SDC) | payer OTHER, SELFPAY ==
[2025-07-25] VITALS (13 sets, daily range): BP systolic 110–143; BP diastolic 63–84; BMI 24.6
[2025-07-25] MEDS: TYLENOL 1000 MG PO (11:07)
[2025-07-25] MEDS: NORMOSOL-R/PLASMALYTE-A 1000 IV (11:08)
[2025-07-25] MEDS: SUBLIMAZE 25 MCG IV (16:49)
[2025-07-25] MEDS: DILAUDID 0.5 MG IV (17:22)
[2025-07-25] MEDS: ZOFRAN 4 MG IV (18:32)
--- NOTE | 2025-07-25 19:30 | W.IMMPOSTOP ---
Surgical Immed Post Op Note
-
Primary Surgeon: DEANN Anguiano MD
Assisting Surgeon:
Pre-op Diagnosis: History of breast cancer, status postmastectomy bilateral
Post-op Diagnosis: Same
Procedure Performed: Fat grafting to the bilateral breast donor site abdomen and thigh
Anesthesia Type: General
Specimen / Cultures: None
Estimated Blood Loss: 30 cc
Complications: None
Operative Findings: As expected
--- NOTE | 2025-07-25 19:30 | OR.RPT ---
Operative Report
Operative Report
Date of service: 07/25/2025
Surgeon: DEANN Anguiano MD
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
Postoperative diagnosis: Same
Procedure:
1. Fat grafting to the bilateral breast with donor site abdomen and thighs, 250 cc
Anesthesia: General
Complications: None
EBL: 30 cc
Indication for procedure: Patient is a 55-year-old female with a history of breast cancer status post bilateral nipple sparing mastectomy with two-stage reconstruction with expanders to implants. She was left with some contour deformities and
rippling and wrinkling of the implant. She desired improvement and a plan was made to utilize fat grafting with donor site abdomen and thighs to provide better soft tissue contours. Risks were reviewed at length including donor site abnormalities,
infection, fat necrosis and oil cyst. She consented and desired to proceed.
Procedure in detail: Patient was identified preoperatively and the surgical site was confirmed to be the bilateral breast anterior abdomen and flanks as well as thighs. All questions were answered and consents were confirmed. Patient was taken
back the operating placed supine on the table. Anesthesia was induced patient was prepped and draped in usual sterile fashion using ChloraPrep solution. Timeout for patient safety was performed and was confirmed that preoperative antibiotics had
been administered and bilateral SCDs were placed. Procedure began with the injection of tumescent solution consisting of 1 L normal saline or with 50 cc of 1% lidocaine and 1 amp of epi distributed over anterior abdomen lateral flanks and bilateral
thighs. A total of 3 L was used. After waiting appropriate amount of time separation off suction was performed. Aspiration was then performed and fat graft was collected using the pure graft system. Placed 1200 cc of Lipo aspirate was removed
and processed resulting in approximately 250 cc of fat to be injected. This was distributed primarily over the left breast but also over the right breast in the areas of previously marked contour abnormalities. Fat equilibration was performed over
the donor sites. All poke holes were closed with 5-0 fast. Patient tolerated procedure well and was performed out complication, all counts were correct at the end the case. She was extubated taken the PACU further care
== END 2025-07-25 19:42 | disposition home or self-care (01) ==
LOC: SDS 06:07
PROVIDERS: ATTENDING PHYSICIAN Surgery Plastic and Reconstructive Surgery
DX: N65.0 Deformity of reconstructed breast (principal); Z85.3 Personal history of malignant neoplasm of breast; Z90.13 Acquired absence of bilateral breasts and nipples
CPT/HCPCS: 19380